=== PATIENT | female | born 1965 | race Caucasian/White ===

== ENCOUNTER 2017-05-20 15:33 | Emergency (ER) | payer BC ==
[~2017-05-20] VITALS: Ht 160 cm; Wt 59.0 kg
[~2017-05-20 15:33] MED LIST: IBUPROFEN600 MG PO; LEVOTHYROXINE112 MCG PO; MAGNESIUM30 MG PO; MULTI VITAMIN1 EACH PO; TRAMADOL HCL50 MG PO
== END 2017-05-23 ==
LOC: ED 15:33
DX: Z53.8 Procedure and treatment not carried out for other reasons (principal)

== ENCOUNTER 2017-05-30 17:31 | Emergency (ER) | payer BC ==
[~2017-05-30] VITALS: Ht 160 cm; Wt 59.0 kg
[2017-05-30] MEDS ORDERED: TAMSULOSIN HCL0.4 MG PO (18:13)
[2017-05-30] MEDS ORDERED: ACETAMINOPHEN-1 EAC1 PO (18:13)
== END 2017-05-30 22:29 | disposition home or self-care (01) ==
LOC: ED 17:31
DX: N13.2 Hydronephrosis with renal and ureteral calculous obstruction (principal); E03.9 Hypothyroidism, unspecified; Z79.899 Other long term (current) drug therapy
CPT/HCPCS: 74177; 80053; 81001; 85025; 96361; 96374; 96375; 96376; 99284; J1170; J1885; J2405; J7030; Q9967

== ENCOUNTER 2017-06-06 09:15 | Day surgery (SDC) | payer BC ==
[~2017-06-06] VITALS: Ht 160 cm; Wt 58.1 kg
[~2017-06-06 09:15] MED LIST changes: +ACETAMINOPHEN-1 EAC1 PO; +TAMSULOSIN HCL0.4 MG PO
--- NOTE | 2017-06-06 09:40 | NUR ---
LE 0935: JESSE IS HERE TO TAKE PT FOR KUB
--- NOTE | 2017-06-06 09:44 | NUR ---
PT IS BACK FROM XRAY.
--- NOTE | 2017-06-06 11:24 | NUR ---
06/06/17 1124 Josselyn Javed 1120 - PT ARRIVED TO PACU. MAINTAINING OWN AIRWAY. PT NOT RESPONDING AT THIS TIME.
--- NOTE | 2017-06-06 12:13 | NUR ---
PT IS BACK TO DS FROM PACU. PT WAS TEARFUL UPON HER RETURN. SIGNIFICANT OTHER IS AT THE BEDSIDE. CALL LIGHT WITHIN REACH. WATER AND CRACKERS AT BEDSIDE. PT HOOKED UP TO PUJA WALDRON. NO OTHER C/O'S AT THIS TIME. WILL REASSESS WITHIN THE HOUR.
[2017-06-06] MEDS ORDERED: BACTRIM DS TAB1 EACH PO (13:19)
--- NOTE | 2017-06-06 15:31 | NUR ---
LE 1515: PT IS MEETING DISCHARGE CRITERIA. PT UP OOB TO BATHROOM WITH STANDBY ASSIST. DISCHARGE INSTRUCTIONS GIVEN TO PATIENT, ALL QUESTIONS ANSWERED. PT DRESSES HERSELF AND IS WHEELCHAIRED OUT TO HER CAR.
--- NOTE | 2017-06-07 14:31 | OR ---
[facility] [address], [place] [address] Signed DATE OF PROCEDURE: 06/06/17 PREOPERATIVE DIAGNOSIS: Left distal ureterolithiasis. POSTOPERATIVE DIAGNOSIS: Left distal ureterolithiasis. NAMES OF PROCEDURES Diagnostic cystoscopy with left retrograde pyelogram. Left semi-rigid ureteroscopy with basket extraction of left distal ureteral calculus. SURGEON: Domingo Hooks MD. ANESTHESIA: General. ESTIMATED BLOOD LOSS: Minimal. COMPLICATIONS: None. SPECIMENS: Left distal ureteral calculus sent to the lab for stone analysis. DRAINS: None. INDICATIONS FOR PROCEDURE Ms. Efra Serrato is a very pleasant 51-year-old female with no previous history of nephrolithiasis, who presented to my clinic last week with a 2-week history of severe left-sided flank pain. She had undergone multiple CAT scans while presenting to the emergency department. The 1st CAT scan did not reveal any evidence of stone. The next CAT scan revealed a stone that was supposedly 0.4 mm in diameter. Upon review of the CT scan results, I suspected that she had around 2-3 mm distal ureteral calculus at the time of her clinic visit. At that time, she elected to undergo ureteroscopy with possible laser lithotripsy and basket extraction of her ureteral calculus. FINDINGS On cystoscopy, there was no evidence of any suspicious masses, lesions or stones. Bilateral ureteral orifices are in their normal anatomic location. The left retrograde pyelogram revealed the presence of a filling defect in the left distal ureter, consistent with her likely distal left ureteral calculus. Left diagnostic ureteroscopy revealed the presence of an approximately 2.5 mm stone in the distal left ureter. The stone was extracted using a Zero tip basket without the need for laser lithotripsy. No ureteral stent was inserted. DESCRIPTION OF PROCEDURE Electronically Signed By: DOMINGO HOOKS MD 06/07/17 1431 PATIENT NAME: JASON MARTINEZ OPERATIVE REPORT DATE OF : 63 PHYSICIAN: DOMINGO HOOKS MD REPORT #: [id number] REPORT IS CONFIDENTIAL AND NOT TO BE RELEASED WITHOUT AUTHORIZATION [facility] [address], [place] [address] Signed After informed consent was obtained, the patient was taken back to the operating room. She was transferred from the [facility] to operating room table, where general anesthesia was induced. She was placed in the dorsal lithotomy position and the genitalia prepped and draped in the standard sterile fashion. Using a 70-degree lens on a 22-Luxembourgish introducer, rigid cystoscope was inserted through the urethra and into the bladder under direct visualization. Mcintosh endoscopic views of the bladder were then obtained. Please see the above findings. Prior to removing the cystoscope, I advanced a cone-tipped catheter to the level of the left ureteral orifice and a left retrograde pyelogram was performed. Please see the findings. I then removed the cystoscope and inserted a semi-rigid ureteroscope. I inserted the ureteroscope into the distal left ureter and a left semi-rigid diagnostic ureteroscopy was performed. Please see above findings. I was able to visualize the stone and grasp the stone using a Zero tip basket without difficulty. The stone was removed without any resistance at the level of the distal left ureter. I then reinserted the cystoscope and was able to appreciate efflux from the left ureteral orifice. I then drained the patient's bladder using the cystoscope. The procedure was then terminated. The patient tolerated the procedure well without any complication. She will now be transferred to the post anesthesia care unit in stable condition. I discussed the details of today's procedure with the patient's and answered all of his questions. She will be scheduled to return back to clinic in the week of June to discuss the results of her stone analysis. She already has enough oral narcotics at home as needed for pain control. I will, however, send her home with oral Bactrim today for a total of 5 days. MD EVANGELINA Boles/Erical /[id number] cc: Albert Nam MD Electronically Signed By: DOMINGO HOOKS MD 06/07/17 1431 PATIENT NAME: JASON MARTINEZ MATT OPERATIVE REPORT DATE OF : 63 PHYSICIAN: DOMINGO HOOKS MD REPORT #: [id number] REPORT IS CONFIDENTIAL AND NOT TO BE RELEASED WITHOUT AUTHORIZATION
== END 2017-06-06 15:25 | disposition home or self-care (01) ==
LOC: OPS 09:15 → DS 09:15 → OPS 10:45
PROVIDERS: Urology
PROC: 0T778DZ Dilation of Left Ureter with Intraluminal Device, Via Natural or Artificial Opening Endoscopic (ICD-10-PCS; principal; 2017-06-06 10:45)
PROC: BT1FYZZ Fluoroscopy of Left Kidney, Ureter and Bladder using Other Contrast (ICD-10-PCS; 2017-06-06 10:45)
DX: N20.1 Calculus of ureter (principal); D64.9 Anemia, unspecified; E03.9 Hypothyroidism, unspecified; L40.9 Psoriasis, unspecified; Z98.890 Other specified postprocedural states; Z79.899 Other long term (current) drug therapy
CPT/HCPCS: 00910; 74000; 76000; 82365; J0696; J1100; J1885; J2250; J2270; J2405; J2704; J3010; J7120

== ENCOUNTER 2019-04-30 07:27 | Day surgery (SDC) | payer BC ==
[~2019-04-30] VITALS: Ht 160 cm; Wt 56.7 kg
--- NOTE | ~2019-04-30 | OR ---
[facility] [address] [place], [place] [address] Draft DATE OF OPERATION: 04/30/2019 SURGEON: Magdy Chapman MD PREOPERATIVE DIAGNOSIS: Colon screening. POSTOPERATIVE DIAGNOSIS: Normal colon to cecum. PROCEDURE: Total colonoscopy to cecum. ANESTHESIA: Intravenous sedation, fentanyl 150 mcg, and Versed 5 mg. INDICATION: This 53-year-old white woman is a patient of SHRUTHI Gregg and is referred for colon screening. She has never had colonoscopy in the past. She has no symptoms of bleeding, diarrhea or constipation, and no family history of colon cancer. She understands the risks of bleeding, infection, and perforation related to colonoscopy and wished to proceed. FINDINGS: The prep was excellent. Complete colonoscopy was undertaken to the cecum without question. There was no sign of polyp, diverticular formation, colitis, or cancer. DESCRIPTION OF PROCEDURE: The patient was brought to the endoscopy suite and placed in lateral decubitus position, given intravenous sedation to the point of slurred speech and nystagmus. After satisfactory sedation, digital rectal examination was performed, which was normal. An Olympus video colonoscope was passed in the rectum and manipulated throughout the colon. She did have some discomfort requiring additional sedation. The scope was ultimately advanced to the cecum without question. The ileocecal valve and appendiceal orifice were normal. Notable was very excellent bowel prep. Withdrawal of the scope was then undertaken and careful examination upon withdrawal showed no sign of polyps, diverticular formation, colitis, or cancer. Retroflex view of the rectum showed some minor anal papilla hypertrophy, but nothing pathologic. The scope was removed. The patient was taken to recovery room in good condition. PATIENT NAME: JASON MARTINEZ OPERATIVE REPORT DATE OF : 63 REPORT #: [id number] PHYSICIAN: MAGDY CHAPMAN MD PCP: MARSHA TY REPORT IS CONFIDENTIAL AND NOT TO BE RELEASED WITHOUT AUTHORIZATION [facility] [address] [facility] [place] [address] Draft CONCLUDING DIAGNOSIS: Normal colon to cecum. PLAN: Recommend repeat colonoscopy in 10 years sooner if clinically indicated. She will return to the ongoing care of SHRUTHI Gregg. MD TANIA Flood/JORDYN /[id number] Copies: ~ PATIENT NAME: JASON MARTINEZ OPERATIVE REPORT DATE OF : 63 REPORT #: [id number] PHYSICIAN: MAGDY CHAPMAN MD PCP: MARSHA TY REPORT IS CONFIDENTIAL AND NOT TO BE RELEASED WITHOUT AUTHORIZATION
[~2019-04-30 07:27] MED LIST changes: +BACTRIM DS TAB1 EACH PO
[2019-04-30] MEDS ORDERED: KETOCONAZOLE120 ML TOP (07:44)
[2019-04-30] MEDS ORDERED: VITAMIN D1000 UNIT PO (07:45)
[2019-04-30] MEDS ORDERED: CYTOMEL50 MCG PO (07:45)
--- NOTE | 2019-04-30 09:21 | NUR ---
04/30/19 0921 Francia Mendiola 0918-PT TO PACU IN LL POSITION ON 3 L NC. EYES OPEN, ASKING QUESTIONS APPROPRIATELY. BREATHING EASY AND UNLABORED SP02 >95%. DENIES PAIN NAUSEA OR DIZZINESS. 0921- PT ABLE TO MOVE SELF TO REPOSITION. STATES SLIGHT CRAMPS. EDUCATED ABOUT PASSING GAS. BREATHING EASY AND UNALBORED SP02>95%
== END 2019-04-30 10:04 | disposition home or self-care (01) ==
LOC: OPS 07:27 → DS 07:27 → OPS 08:30 → DS 08:30 → OPS 10:04
PROVIDERS: Surgery
PROC: 0DJD8ZZ Inspection of Lower Intestinal Tract, Via Natural or Artificial Opening Endoscopic (ICD-10-PCS; principal; 2019-04-30 08:30)
DX: Z12.11 Encounter for screening for malignant neoplasm of colon (principal); E03.9 Hypothyroidism, unspecified; Z88.5 Allergy status to narcotic agent; Z87.442 Personal history of urinary calculi; Z98.890 Other specified postprocedural states
CPT/HCPCS: 99153; G0500; J2250; J3010; J7120